=== PATIENT | female | born 1980 | race African-American/Black ===

== ENCOUNTER 2021-02-14 13:19 | Emergency (ER) | payer OTHER ==
[2021-02-14] MEDS ORDERED: BENZONATATE 100 MG CAP PO ONE (14:18)
--- NOTE | 2021-02-14 16:11 | RAD REPORT ---
EXAM DESCRIPTION: RAD - Chest Single View - 02/14/2021 3:13 pm CLINICAL HISTORY: COUGH COMPARISON: None TECHNIQUE: AP portable chest image was obtained 02/14/2021 3:13 pm . FINDINGS: Exam is limited by under penetrated technique, very shallow inspiratory effort and large b joe habitus. Bibasilar opacification is present, left greater than right. This could be atelectasis o r possibly infiltrate. No significant failure or volume overload. The low lung volumes accentuate the interstitial pattern. Heart and vasculature are normal. No measurable pleural effusion and no pneumothorax. No acute bony abnormality seen. No acute aortic findings suspected. IMPRESSION: Limited shallow inspiration exam with bibasilar opacification, left greater than right. This may all be atelectasis. However, minimal or early left base pneumonia is possible.
[2021-02-14 16:22] LABS: SARS-COV-2 RT PCR POSITIVE (NEGATIVE)
[2021-02-14] MEDS ORDERED: METHYLPREDNISOLONE 125 MG INJ ONE (17:47)
[2021-02-14] MEDS ORDERED: CASIRIVIMAB/IMDEVIMAB 10 ML VIAL ONE (17:48)
[2021-02-14] MEDS ORDERED: NA CHLORIDE 0.9% 1,000 ML ONE (17:48)
[2021-02-14] MEDS ORDERED: ALBUTEROL INHALER 60 PUFF/8 GM IH ONE (17:48)
[2021-02-14] MEDS ORDERED: MORPHINE 2 MG/ML SYR ONE (17:48)
[2021-02-14] MEDS ORDERED: NA CHLORIDE 0.9% 250 ML ONE (17:50)
[2021-02-14 18:05] LABS: Absolute Lymphocytes (CBC) 1.3 K/uL (0.7-4.9); Basophils % 0.5 % (0-1.3); Hematocrit 36.8 % (36.0-45.0); Lymphocytes % 30.2 % (15.3-44.8); MPV 9.3 fL (7.6-11.3); RBC Red Blood Cell Count 4.05 M/uL (3.86-4.86)
[2021-02-14 18:15] LABS: ALT/SGPT 30 U/L (12-78); AST/SGOT 37 U/L (15-37); Albumin 2.9 g/dL (3.4-5.0); Alkaline Phosphatase 114 U/L (45-117); BUN Blood Urea Nitrogen 4 mg/dL (7-18); Bicarbonate 24 mmol/L (21-32); Bilirubin Direct 0.2 mg/dL (0-0.2); Bilirubin Total 0.6 mg/dL (0.2-1.0); Glucose Level 304 mg/dL (74-106); Magnesium 2.1 mg/dL (1.8-2.4); NT PRO-BNP 25 pg/mL (<125); Potassium 3.4 mmol/L (3.5-5.1); Protein, Total 8.2 g/dL (6.4-8.2); Sodium Level 137 mmol/L (136-145); Troponin (Emerg Dept Use Only) < 0.02 ng/mL (0.0-0.045)
[2021-02-14 18:16] LABS: Protime INR 1.07
[2021-02-14] MEDS ORDERED: POTASSIUM 25 MEQ EFFERV TAB ONE (20:37)
--- NOTE | 2021-02-14 21:22 | EDPHYS ---
Physician Documentation [facility] Name: Rena Dumont Age: 40 yrs Sex: Female : 1980 Arrival Date: 02/14/2021 Time: 13:24 Bed 13 Private MD: ED Physician Adolph Maguire HPI: 02/14 14:30 This 40 yrs old Black Female presents to ER via Ambulatory with complaints of r/o covid.cp 14:30 The patient or guardian reports cough, that is intermittent, with no sputum, difficulty cp breathing. Onset: The symptoms/episode began/occurred 1 week(s) ago, and became worse 3 day(s) ago. Associated signs and symptoms: Pertinent positives: chest pain, with cough, Pertinent negatives: diarrhea, fever, vomiting. Severity of symptoms: in the emergency department the symptoms are unchanged despite home interventions. 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 - Social history:: Smoking status: Patient denies any tobacco usage or history of. Patient/guardian denies using alcohol, street drugs. ROS: 14:35 Constitutional: Negative for body aches, chills, fever, poor PO intake. cp 14:35 Eyes: Negative for injury, pain, redness, and discharge. cp 14:35 ENT: Negative for ear pain, sore throat, difficulty swallowing, difficulty handling secretions. 14:35 Cardiovascular: Positive for chest pain, with cough, Negative for edema. 14:35 Respiratory: Positive for cough, with no reported sputum, shortness of breath, at rest. Negative for wheezing. 14:35 Abdomen/GI: Negative for abdominal pain, vomiting, diarrhea, constipation. 14:35 : Negative for urinary symptoms. 14:35 Neuro: Negative for altered mental status, headache, syncope, weakness. 14:35 All other systems are negative. Exam: 14:30 ECG was reviewed by the Attending Physician. cp 14:40 Constitutional: The patient appears in no acute distress, alert, awake, cp non-diaphoretic, non-toxic, well developed, well nourished, obese, uncomfortable. 14:40 Head/Face: Normocephalic, atraumatic. cp 14:40 Eyes: Periorbital structures: appear normal, Conjunctiva: normal, no exudate, no injection, Sclera: no appreciated abnormality, Lids and lashes: appear normal, bilaterally. 14:40 ENT: External ear(s): are unremarkable, Nose: is normal, Mouth: Lips: moist, Oral mucosa: moist, Posterior pharynx: Airway: no evidence of obstruction, patent. 14:40 Neck: ROM/movement: is normal, is supple, without pain, no range of motions limitations, no meningismus. 14:40 Chest/axilla: Inspection: normal. 14:40 Cardiovascular: Rate: tachycardic, Rhythm: regular, Edema: is not appreciated, JVD: is not appreciated. 14:40 Respiratory: the patient does not display signs of respiratory distress, Respirations: shallow respirations, that is mild, Breath sounds: decreased breath sounds, are not appreciated, stridor, is not appreciated, wheezing: is not appreciated. 14:40 Abdomen/GI: Exam negative for discomfort, distension, guarding, Inspection: abdomen appears normal. 14:40 Neuro: Orientation: to person, place \\T\\ time. Mentation: is normal, Motor: moves all fours, strength is normal, Sensation: is normal. Vital Signs: 14:10 BP 155 / 115; Pulse 124; Resp 20; Temp 98.2(TE); Pulse Ox 96% on R/A; Weight 84.37 kg; ld1 Height 4 ft. 11 in. (149.86 cm); Pain 10/10; 18:30 BP 135 / 94; Pulse 107; Resp 26; Pulse Ox 100% ; vg1 20:09 BP 146 / 96; Pulse 111; Resp 28; Pulse Ox 98% on 2 lpm NC; bb 21:15 BP 135 / 68; Pulse 82; Resp 16; Pulse Ox 98% on R/A; kd3 21:55 BP 139 / 103; Pulse 118; Resp 30 S; Pulse Ox 100% on R/A; bb 02/15 00:17 BP 138 / 99; Pulse 116; Resp 20; Pulse Ox 97% on R/A; kd3 00:51 BP 137 / 82; Pulse 125; Resp 16; Temp 97.8; Pulse Ox 94% on R/A; kd3 02/14 14:10 Body Mass Index 37.57 (84.37 kg, 149.86 cm) ld1 MDM: 02/14 15:00 Differential diagnosis: bronchitis, flu, pulmonary embolism, pneumonia. cp 16:36 Patient medically screened. cp 18:00 Transition of care: After a detail discussion of the patient's case, care is cp transferred to Erik RUTH. 21:19 Data reviewed: vital signs, nurses notes, lab test result(s), EKG, radiologic studies, jr8 plain films. Data interpreted: Pulse oximetry: on room air is 98 %. Interpretation: normal. Counseling: I had a detailed discussion with the patient and/or guardian regarding: the historical points, exam findings, and any diagnostic results supporting the discharge/admit diagnosis, lab results, radiology results, the need for outpatient follow up, a family practitioner, to return to the emergency department if symptoms worsen or persist or if there are any questions or concerns that arise at home. Response to treatment: the patient's symptoms have markedly improved after treatment. ED course: Patient with mild improvement. Still remains slightly tachycardic and tachypneic. Will r/o PE . 02/15 00:17 ED course: No large pulmonary emboli identified. Patient seems to be in no acute jr8 distress although her heart rate is still elevated and she is still tachypneic. Patient seems to be maintaining anywhere between 97 to 100% at rest. Will have nurse mildly walk patient to see how she does functionally.. 00:37 ED course: Patient was able to ambulate with minimal to no difficulty. Maintained jr8 oxygen saturation above 93% the entire time. No increased work of breathing and is with able to speak in full sentences while walking and when she got back to the bed. Close return precautions given to patient including needing to get a pulse oximeter. I urged her to have low threshold to come back if she were to worsening point time. Patient good with this and will monitor self closely and come back if needed.. 02/14 14:16 Order name: COVID-19/FLU A+B (Document "Date of Onset" if Symptomatic); Complete Time: ld1 16:34 02/14 16:34 Interpretation: SARSCOV2 RT PCR POSITIVE; Reviewed. 02/14 14:16 Order name: Strep; Complete Time: 16:34 ld1 02/14 14:18 Order name: Basic Metabolic Panel; Complete Time: 18:18 cp 02/14 18:19 Interpretation: Normal except: K 3.4; GLUC 304; BUN 4. cp 02/14 14:18 Order name: CBC with Diff; Complete Time: 18:18 cp 02/14 14:18 Order name: LFT's; Complete Time: 18:18 cp 02/14 14:18 Order name: Magnesium; Complete Time: 18:18 cp 02/14 14:18 Order name: NT PRO-BNP; Complete Time: 18:18 cp 02/14 14:18 Order name: PT-INR; Complete Time: 18:18 cp 02/14 14:18 Order name: Troponin (emerg Dept Use Only); Complete Time: 18:18 cp 02/14 14:18 Order name: XRAY Chest (1 view); Complete Time: 16:34 cp 02/14 16:06 Order name: Throat Culture EDGA 02/14 16:50 Order name: CRP; Complete Time: 21:48 cp 02/14 16:50 Order name: Ferritin; Complete Time: 21:48 cp 02/14 21:48 Order name: CT Chest For PE Angio jr8 02/14 14:18 Order name: EKG; Complete Time: 14:19 cp 02/14 14:18 Order name: Cardiac monitoring; Complete Time: 18:12 02/14 14:18 Order name: EKG - Nurse/Tech; Complete Time: 14:24 cp 02/14 14:18 Order name: IV Saline Lock; Complete Time: 18:12 cp 02/14 14:18 Order name: Labs collected and sent; Complete Time: 18:12 cp 02/14 14:18 Order name: O2 Per Protocol; Complete Time: 18:12 cp 02/14 14:18 Order name: O2 Sat Monitoring; Complete Time: 18:12 cp EC/30 14:30 Rate is 130 beats/min. Rhythm is regular. WI interval is normal. QRS interval is cp normal. QT interval is normal. Interpreted by me. Reviewed by me. Administered Medications: 14:24 Drug: Tessalon Perle (benzonatate) 200 mg Route: PO; ld1 14:24 Follow up: Response: No adverse reaction ld1 18:22 Drug: NS 0.9% 1000 ml Route: IV; Rate: 1 bolus; Site: left jugular; vg1 22:20 Follow up: IV Status: Completed infusion; IV Intake: 950ml bb 18:23 Drug: Albuterol HFA Inhaler 2 puffs Route: Inhalation; vg1 18:27 Drug: SOLU-Medrol (methylPrednisoLONE) 125 mg Route: IVP; Site: left jugular; vg1 22:20 Follow up: Response: No adverse reaction bb 18:29 Drug: morphine 2 mg Route: IVP; Site: left jugular; vg1 19:15 Follow up: Response: No adverse reaction; RASS: Alert and Calm (0) bb 18:45 Drug: Casirivimab-Imdevimab Dose Pack 120 mg/mL-120 mg/mL (EUA) 1 application Route: vg1 IV; Rate: calculated rate; Site: left jugular; 21:00 Follow up: IV Status: Completed infusion; IV Intake: 260ml bb 20:39 Drug: Potassium Effervescent Tablet 50 mEq Route: PO; kd3 22:20 Follow up: Response: No adverse reaction bb 02/15 00:51 Drug: Tussionex Pennkinetic ER (chlorpheniramine-hydrocodone) Suspension 5 ml Route: PO;kd3 Disposition: 09:23 Co-signature as Attending Physician, Adolph Maguire MD I agree with the assessment and jared plan of care. Disposition Summary: 02/15/21 00:38 Discharge Ordered Location: Home(02/15/21 00:38) jr8 Problem: new(02/15/21 00:38) jr8 Symptoms: have improved(02/15/21 00:38) jr8 Condition: Stable(02/15/21 00:38) jr8 Diagnosis - Pneumonia due to SARS-associated coronavirus jr8 - SARS-associated coronavirus as the cause of diseases classified elsewhere(02/15/21 jr8 00:38) Followup: jr8 - With: Private Physician - When: 2 - 3 days - Reason: Recheck today's complaints, Continuance of care, Re-evaluation by your physician Discharge Instructions: - Discharge Summary Sheet jr8 - COVID-19 jr8 - 10 Things You Can Do to Manage Your COVID-19 Symptoms at Home - [facility] jr8 Forms: - Medication Reconciliation Form jr8 - Thank You Letter jr8 - Antibiotic Education jr8 - Prescription Opioid Use jr8 Prescriptions: - Prednisone 20 mg Oral Tablet - take 1 tablet by ORAL route once daily for 7 days; 7 tablet; Refills: 0, jr8 Product Selection Permitted - promethazine-DM 6.25-15 mg/5 mL Oral syrup - take 5 milliliter by ORAL route every 4-6 hours as needed, not to exceed 30 mL jr8 in 24 hours; 110 milliliter; Refills: 0, Product Selection Permitted Signatures: Dispatcher [employer] EDMS Adolph Maguire MD MD cha Roszak, Josh, PA PA jr8 Adolph Dangelo PA PA cp Garcia, Victoria, RN RN vg1 Abena King RN RN ld1 Maylin Vaca RN RN kd3 Claudia Galvan RN bb Corrections: (The following items were deleted from the chart) 02/14 14:14 14:12 Home Meds: None; ld1 ld1 21:30 21:21 Home jr8 jr8 21:30 21:21 new jr8 jr8 21:30 21:21 have improved jr8 jr8 21:30 21:21 Stable jr8 jr8 21:30 21:21 SARS-associated coronavirus as the cause of diseases classified elsewhere jr8 jr8 21:52 21:19 ED course: Patient hemo-dynamically stable. Nontachycardic or tachypneic. No jr8 increased work of breathing. 98% on room air at this time. Patient accepted the Regeneron infusion well. We will send her home to follow-up with PCP. Knows to come back if she were to have increased work of breathing or hypoxia. Recommended pulse oximeter at home as well.. jr8
--- NOTE | 2021-02-14 21:22 | ER ---
Nurse's Notes [facility] Name: Rena Dumont Age: 40 yrs Sex: Female : 1980 Arrival Date: 02/14/2021 Time: 13:24 Bed 13 Private MD: Diagnosis: Pneumonia due to SARS-associated coronavirus;SARS-associated coronavirus as the cause of diseases classified elsewhere Presentation: 02/14 14:10 Chief complaint: Patient states: cough, can't breathe, chest pain, SOB X 3 days. Pt ld1 thinks she may have covid. Coronavirus screen: Client presents with at least one sign or symptom that may indicate coronavirus-19. Standard/surgical mask placed on the client. Ebola Screen: No symptoms or risks identified at this time. Initial Sepsis Screen: Does the patient meet any 2 criteria? No. Patient's initial sepsis screen is negative. Does the patient have a suspected source of infection? No. Patient's initial sepsis screen is negative. Risk Assessment: Do you want to hurt yourself or someone else? Patient reports no desire to harm self or others. Onset of symptoms was February 14, 2021. 14:10 Method Of Arrival: Ambulatory ld1 14:10 Acuity: BAYLEE 3 jh5 Triage Assessment: 14:12 General: Appears in no apparent distress. uncomfortable, Behavior is cooperative, ld1 appropriate for age, anxious. Pain: Complains of pain in back and mid-sternal area Pain does not radiate. Pain currently is 10 out of 10 on a pain scale. Quality of pain is described as heavy, pressure, sharp, stabbing, throbbing, Pain began gradually, Is continuous. EENT: No signs and/or symptoms were reported regarding the EENT system. Neuro: Level of Consciousness is awake, alert, obeys commands, Oriented to person, place, time, situation, Appropriate for age. Cardiovascular: Capillary refill < 3 seconds Patient's skin is warm and dry. Respiratory: Airway is patent Respiratory effort is even, unlabored, Respiratory pattern is regular, symmetrical. GI: Abdomen is round non-distended. : No signs and/or symptoms were reported regarding the genitourinary system. Derm: No signs and/or symptoms reported regarding the dermatologic system. Musculoskeletal: No signs and/or symptoms reported regarding the musculoskeletal system. 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 - Social history:: Smoking status: Patient denies any tobacco usage or history of. Patient/guardian denies using alcohol, street drugs. Screenin:49 Abuse screen: Denies threats or abuse. Nutritional screening: No deficits noted. vg1 Tuberculosis screening: No symptoms or risk factors identified. Fall Risk No fall in past 12 months (0 pts). No secondary diagnosis (0 pts). IV access (20 points). Ambulatory Aid- None/Bed Rest/Nurse Assist (0 pts). Gait- Normal/Bed Rest/Wheelchair (0 pts) Mental Status- Oriented to own ability (0 pts). Total Goodman Fall Scale indicates No Risk (0-24 pts). Assessment: 16:55 General: Appears in no apparent distress. uncomfortable, Behavior is calm, cooperative. vg1 16:55 Pain: Complains of pain in chest and generalized body aches Pain currently is 10 out of vg1 10 on a pain scale. Pain began x 1 week. Neuro: Level of Consciousness is awake, alert, obeys commands, Oriented to person, place, time, situation. Cardiovascular: Patient's skin is warm and dry. Respiratory: Reports shortness of breath on exertion cough that is Airway is patent Respiratory effort is even, unlabored, Respiratory pattern is tachypnea. : No signs and/or symptoms were reported regarding the genitourinary system. EENT: No signs and/or symptoms were reported regarding the EENT system. Derm: Skin is intact, is healthy with good turgor. Musculoskeletal: Circulation, motion, and sensation intact. 16:55 GI: Patient currently denies nausea, vomiting. vg1 19:15 General: Appears in no apparent distress. Behavior is calm, cooperative. Neuro: Level bb of Consciousness is awake, alert, obeys commands, Oriented to person, place, time, situation. Cardiovascular: Capillary refill < 3 seconds Patient's skin is warm and dry. Respiratory: Respiratory effort is even, unlabored, Respiratory pattern is tachypnea. Derm: Skin is dry, pt ambulated with steady gait to the bathroom, on return infusion continued IV site intact, patent, with no erythema or edema noted, Pt awaiting completion of infusion and monitoring time prior to discharge Skin is normal, Skin temperature is warm. 20:43 Reassessment: Patient and/or family updated on plan of care and expected duration. Pain kd3 level reassessed. Patient is alert, oriented x 3, equal unlabored respirations, skin warm/dry/pink. 21:18 Reassessment: No changes from previously documented assessment. kd3 21:36 Reassessment: Pt up to restroom. pt sob when ambulating. pt sat 94 on monitor when kd3 returned to room. md notified. 21:37 Reassessment: provider notified of pt vital signs new orders received pt to receive CT bb for PE, started IV to L AC 20 g. 23:15 Reassessment: pt to CT. kd3 02/15 00:18 Reassessment: Patient appears in no apparent distress at this time. pt resting in bed. kd3 pt tachypneic but does not appear to be in distress. Patient denies pain at this time. Vital Signs: 02/14 14:10 BP 155 / 115; Pulse 124; Resp 20; Temp 98.2(TE); Pulse Ox 96% on R/A; Weight 84.37 kg; ld1 Height 4 ft. 11 in. (149.86 cm); Pain 10/10; 18:30 BP 135 / 94; Pulse 107; Resp 26; Pulse Ox 100% ; vg1 20:09 BP 146 / 96; Pulse 111; Resp 28; Pulse Ox 98% on 2 lpm NC; bb 21:15 BP 135 / 68; Pulse 82; Resp 16; Pulse Ox 98% on R/A; kd3 21:55 BP 139 / 103; Pulse 118; Resp 30 S; Pulse Ox 100% on R/A; bb 02/15 00:17 BP 138 / 99; Pulse 116; Resp 20; Pulse Ox 97% on R/A; kd3 00:51 BP 137 / 82; Pulse 125; Resp 16; Temp 97.8; Pulse Ox 94% on R/A; kd3 02/14 14:10 Body Mass Index 37.57 (84.37 kg, 149.86 cm) ld1 ED Course: 02/14 13:24 Patient arrived in ED. am2 14:12 Triage completed. ld1 14:12 Arm band placed on right wrist. ld1 14:17 Adolph Dangelo PA is PHCP. cp 14:17 Adolph Maguire MD is Attending Physician. cp 14:24 COVID-19/FLU A+B (Document "Date of Onset" if Symptomatic) Sent. ld1 14:24 Strep Sent. ld1 15:13 XRAY Chest (1 view) In Process Unspecified. EDMS 16:54 Leydi Aguilar RN is Primary Nurse. vg1 17:41 PHCP role handed off by Adolph Dangelo PA jr8 17:41 Erik Santiago PA is PHCP. jr8 18:00 Inserted saline lock: 20 gauge in left EJ, using aseptic technique. ,using aseptic vg1 technique. completed by Pamela RUTH. 18:50 Patient has correct armband on for positive identification. Placed in gown. Bed in low vg1 position. Call light in reach. Side rails up X2. Adult w/ patient. 19:23 Report given to Naa SQUIRES. vg1 21:38 Inserted saline lock: 20 gauge in left antecubital area, using aseptic technique. bb 22:21 Throat Culture Sent. bb 23:23 CT Chest For PE Angio In Process Unspecified. EDMS 02/15 00:52 No provider procedures requiring assistance completed. IV discontinued, intact, kd3 bleeding controlled, No redness/swelling at site. Pressure dressing applied. Administered Medications: 02/14 14:24 Drug: Tessalon Perle (benzonatate) 200 mg Route: PO; ld1 14:24 Follow up: Response: No adverse reaction ld1 18:22 Drug: NS 0.9% 1000 ml Route: IV; Rate: 1 bolus; Site: left jugular; vg1 22:20 Follow up: IV Status: Completed infusion; IV Intake: 950ml bb 18:23 Drug: Albuterol HFA Inhaler 2 puffs Route: Inhalation; vg1 18:27 Drug: SOLU-Medrol (methylPrednisoLONE) 125 mg Route: IVP; Site: left jugular; vg1 22:20 Follow up: Response: No adverse reaction bb 18:29 Drug: morphine 2 mg Route: IVP; Site: left jugular; vg1 19:15 Follow up: Response: No adverse reaction; RASS: Alert and Calm (0) bb 18:45 Drug: Casirivimab-Imdevimab Dose Pack 120 mg/mL-120 mg/mL (EUA) 1 application Route: vg1 IV; Rate: calculated rate; Site: left jugular; 21:00 Follow up: IV Status: Completed infusion; IV Intake: 260ml bb 20:39 Drug: Potassium Effervescent Tablet 50 mEq Route: PO; kd3 22:20 Follow up: Response: No adverse reaction bb 02/15 00:51 Drug: Tussionex Pennkinetic ER (chlorpheniramine-hydrocodone) Suspension 5 ml Route: PO;kd3 Intake: 02/14 21:00 IV: 260ml; Total: 260ml. bb 22:20 IV: 950ml; Total: 1210ml. bb Outcome: 21:21 Discharge ordered by MD. bird 02/15 00:38 Discharge ordered by MD. bird 00:52 Discharged to home ambulatory. kd3 00:52 Condition: stable 00:52 Discharge instructions given to patient, Instructed on discharge instructions, follow up and referral plans. medication usage, Demonstrated understanding of instructions, follow-up care, medications, Prescriptions given X 2. 00:53 Patient left the ED. kd3 Signatures: Dispatcher [employer] EDMS Claudia Galvan RN RN bb Roszak, Josh, PA PA jr8 Adolph Dangelo PA PA cp Moreno, Amanda am2 Garcia, Victoria, RN RN vg1 Abena King RN RN ld1 Lauren Valdovinos RN RN jh5 Maylin Vaca RN RN kd3 Corrections: (The following items were deleted from the chart) 02/14 14:14 14:12 Home Meds: None; ld1 ld1 14:22 14:10 Acuity: BAYLEE 4 ld1 jh5 21:50 19:15 Respiratory: Respiratory effort is even, unlabored, Respiratory pattern is bb regular, bb 21:50 19:15 Derm: Skin is dry, pt ambulated with steady gait to the bathroom, on return bb infusion continued IV site intact, patent, with no erythema or edema noted, Pt awaiting completion of infusion and monitoring time prior to discharge Skin is normal, Skin temperature is warm bb
[2021-02-14 21:40] LABS: Ferritin 457.9 ng/mL (8-388)
[2021-02-14 21:41] LABS: C-Reactive Protein 67.9 mg/L (<3.00)
[2021-02-15] MEDS ORDERED: HYDROCODONE/CHLORPHEN 5 ML/OSYR ONE (00:40)
[2021-02-15 01:09] VITALS: BP 137/82; TEMP 97.8; O2SAT 94
--- NOTE | 2021-02-15 15:55 | RAD REPORT ---
EXAM DESCRIPTION: CT - Chest For Pe Angio - 02/15/2021 6:13 am CLINICAL HISTORY: 40-year-old female with chest pain, shortness of breath and cough. Cold with posit gerri. COMPARISON: None. TECHNIQUE: CT angiography of the pulmonary arteries was performed following intravenous administrati on of contrast. Coronal and bilateral oblique maximum intensity projections (MIPS) were created. This exam was performed according to our departmental dose optimization program which includes use of aut omated exposure control, adjustment of the mA and/or kV according to patient size and/or use of itera tive reconstruction technique. FINDINGS: Chest: Evaluation through the lungs reveals reveals multifocal peripherally based airspace opacities concern ing for multifocal infectious process including viral/atypical infection. Commonly reported imaging f eatures of viral pneumonia are present. Other processes such as influenza pneumonia and organizing pn eumonia, as can be seen with drug toxicity and connective tissue disease, can cause similar imaging p attern. PneTyp Trace left-sided pleural effusion. No pneumothorax. There is minimal dependent basilar atelectasis an d scarring. The tracheobronchial airways are patent. No significant mediastinal or axillary lymphaden opathy by CT measurement criteria. Incompletely visualized bilateral breast prostheses. Limited evaluation of the upper abdomen shows no acute intra-abdominal abnormalities. The osseous structures are within normal limits. CT angiography: Diagnostic CT angiography of the pulmonary arteries without findings to suggest embol ism within the main, LEFT and RIGHT main pulmonary arteries. However, secondary to severe breathing m otion artifact. Small distal pulmonary embolism within the subsegmental pulmonary arteries cannot be excluded. IMPRESSION: 1. Diagnostic pulmonary angiography without findings to suggest embolism within the ma in, LEFT and RIGHT main pulmonary arteries. However, secondary to severe breathing motion artifact. S mall distal pulmonary embolism within the subsegmental pulmonary arteries cannot be excluded. 2. Evaluation through the lungs reveals multifocal peripherally based airspace opacities concerning for multifocal infectious process including viral/atypical infection. Commonly reported imaging feat ures of viral pneumonia are present. Other processes such as influenza pneumonia and organizing pneum onia, as can be seen with drug toxicity and connective tissue disease, can cause similar imaging mela lauren. 3. Trace left-sided pleural effusion. Electronically signed by: Loida Castle MD 02/14/2021 11:51 PM COMMUNITY SERVICES MANAGER Due to temporary technical issues with the PACS/Fluency reporting system, reports are being signed by the in house radiologists without review as a courtesy to insure prompt reporting. The interpreting radiologist is fully responsible for the content of the report.
--- NOTE | 2021-02-15 16:23 | EKG ---
Test Date: 2021-02-14 Test Time: 14:22:25 People Manager: MARI MEASUREMENT RESULTS: Intervals: Rate: 130 ME: 144 QRSD: 68 QT: 304 QTc: 447 [place]: P: 42 ME: 144 QRS: 66 T: -69 INTERPRETIVE STATEMENTS: Sinus tachycardia Nonspecific ST and T wave abnormality Abnormal ECG No previous ECG available for comparison Electronically Signed On 02-15-21 16:21:28 MARINE TOWER OPERATOR by Antelmo Villasenor
== END 2021-02-15 00:53 | disposition home or self-care (01) ==
LOC: ER 13:19
DX: U07.1 COVID-19 (principal); J12.82 Pneumonia due to coronavirus disease 2019; I10 Essential (primary) hypertension; F41.9 Anxiety disorder, unspecified
CPT/HCPCS: 96365; 96361; 93005; 87070; 85025; 80048; 36415; 83735; 85610; 80076; 87081; 84484; 82728; 83880; 0240U; 86140; 71275; 71045; 96375; 99284; 96366; Q9967; J2270; J7050; J7030; J2930; M0243

== ENCOUNTER 2021-11-08 06:27 | Day surgery (SDC) | payer OTHER ==
[2021-11-08] MEDS ORDERED: NA CHLORIDE 0.9% 1,000 ML ONE (06:57)
[2021-11-08 07:18] LABS: SARS-CoV-2 Antigen Rapid Res Negative (Negative)
[2021-11-08] MEDS ORDERED: LIDOCAINE 1% MPF 30 ML VIAL ONE (07:41)
[2021-11-08] MEDS ORDERED: propofoL 200 MG/20 ML VIAL IV ONE (07:41)
--- NOTE | 2021-11-08 08:16 | ENDO RPT ---
[address], [address] EGD PROCEDURE REPORT EXAM DATE: 11/08/2021 PATIENT NAME: Rena Dumont MR#: [id number] BIRTHDATE: 1980 ATTENDING: Michael Torres DR STATUS: outpatient TANNING DRUM OPERATOR: Dexter Velasquez and Katelyn Cavanaugh RN INDICATIONS: The patient is a 41 yr old Female here for an EGD due to mid epigastric abdominal pain and nausea and vomiting PROCEDURE PERFORMED: EGD with biopsy for H. pylori MEDICATIONS: Per Anesthesia. TOPICAL ANESTHETIC: none CONSENT: The patient understands the risks and benefits of the procedure and understands that these risks include, but are not limited to: sedation, allergic reaction, infection, perforation and/or bleeding. Alternative means of evaluation and treatment include, among others: physical exam, x-rays, and/or surgical intervention. The patient elects to proceed with this endoscopic procedure. DESCRIPTION OF PROCEDURE: During intra-op preparation period all mechanical medical equipment was checked for proper function. Hand hygiene and appropriate measures for infection prevention was taken. Procedure, possible complications, and alternatives including but not limited to the possibility of bleeding, perforation, tear, infection, sepsis, need for surgery, need for blood transfusion, and anesthesia related complications were explained to the patient. After the risks, benefits and alternatives of the procedure were thoroughly explained, Informed consent was verified, confirmed and timeout was successfully executed by the treatment team. The patient was placed in the left lateral position. The patient was anesthetized with topical anesthesia. Through the anesthetized oropharyngeal area, the scope was passed without any difficulty. The EG-[id number] ([id number]) endoscope was introduced through the mouth and advanced to the second portion of the duodenum. Retroflexed views revealed a small hiatal hernia. The gastroscope was then slowly withdrawn and removed. Mild gastritis was found in the body and the antrum of the stomach. Multiple biopsies were obtained and sent to pathology. A biopsy for H. pylori was taken. ADVERSE EVENTS: There were no complications. IMPRESSIONS: 1. Mild gastritis was found in the body and the antrum of the stomach 2. Hiatus hernia RECOMMENDATIONS: 1. acid suppression therapy 2. anti-reflux regimen 3. await biopsy results 4. follow-up: office 2 week(s) 5. avoid NSAIDS 6. follow-up of helicobacter pylori status, treat if indicated REPEAT EXAM: Michael Torres DR eSigned: Michael Torres DR 11/08/2021 8:15 AM cc: CPT CODES: ICD9 CODES: PATIENT NAME: Rena Dumont MR#: [id number]
[2021-11-08 08:44] VITALS: O2SAT 100
[2021-11-08 09:35] VITALS: BP 118/74; TEMP 97.8
== END 2021-11-08 09:15 | disposition home or self-care (01) ==
LOC: OR 06:27
PROVIDERS: ATTEND Surgery
PROC: 0DB68ZX Excision of Stomach, Via Natural or Artificial Opening Endoscopic, Diagnostic (ICD-10-PCS; 2021-11-08)
PROC: 0DB58ZX Excision of Esophagus, Via Natural or Artificial Opening Endoscopic, Diagnostic (ICD-10-PCS; 2021-11-08)
PROC: 0DB98ZX Excision of Duodenum, Via Natural or Artificial Opening Endoscopic, Diagnostic (ICD-10-PCS; principal; 2021-11-08 08:00)
DX: A04.8 Other specified bacterial intestinal infections (principal); R10.13 Epigastric pain; R11.2 Nausea with vomiting, unspecified; S30.1XXA Contusion of abdominal wall, initial encounter; E11.9 Type 2 diabetes mellitus without complications; F41.9 Anxiety disorder, unspecified; I10 Essential (primary) hypertension; F32.A Depression, unspecified; K29.50 Unspecified chronic gastritis without bleeding; K44.9 Diaphragmatic hernia without obstruction or gangrene; Z20.822 Contact with and (suspected) exposure to COVID-19
CPT/HCPCS: 36415; 88312; 84132; 82947; 88305; 87811; 43239; U0002; J2704; J7030